=== PATIENT | male | born 1990 | race Caucasian/White ===

== ENCOUNTER 2017-11-07 23:30 | Inpatient (IN) | payer MEDICAID ==
[~2017-11-07] VITALS: Ht 170.2 cm; Wt 69.4 kg
[2017-11-08] VITALS (7 sets, daily range): BP systolic 96–120; BP diastolic 49–79
--- NOTE | 2017-11-08 00:41 | NUR ---
PT PRESENTS TO THE ED WITH A C/O RUQ ABD PAIN X 12 HRS. HE REPORTS THE PAIN HAS BEEN CONSTANT AND WORSENING SINCE NOON. HE DENIES ANY DIARRHEA OR FEVER. ABD IS SOFT AND TENDER TO PALPATION. DENIES ANY BLOODY STOOL OR VOMIT. RESP ARE EVEN AND UNLABORED, DENIES CP, SOB. RATES PAIN 7/10, SHARP. MEDICATED PER MD ORDERS
[2017-11-08 00:42] LABS: CALCIUM 9.1 mg/dL (8.5-10.1); CARBON DIOXIDE 32.9 mmol/L (21-32); CHLORIDE SERUM 101 mmol/L (98-107); GFR1 > 60 mL/min; GLUCOSE SERUM 112 mg/dL (74-106); SODIUM SERUM 138 mmol/L (136-145)
[2017-11-08 00:44] LABS: BASOPHIL % 0.5 % (0-2); PLATELET COUNT 307 x10^3mcL (130-400); RED CELL DISTRIBUTION WIDTH 13.3 % (11.5-14.5)
[2017-11-08 00:47] LABS: ALBUMIN 3.8 g/dL (3.4-5.0); ALKALINE PHOSPHATASE 130 U/L (46-116); ALT/SGPT 557 U/L (16-63); AST/SGOT 866 U/L (15-37); BILIRUBIN TOTAL 1.2 mg/dL (0.20-1.00); LIPASE 109 IU/L (73-393)
--- NOTE | 2017-11-08 01:21 | NUR ---
PATIENT MEDICATED WITH MORPHINE 4 MG FOR COMPLAINT OF 9/10 PAIN. UPPER ABDOMEN. U/S TECH AT THE BEDSIDE DOING ULTRASOUND.
--- NOTE | 2017-11-08 02:16 | NUR ---
REPORT WAS GIVEN TO QIAN. PATIENT TRANSPORTED TO ROOM 256B. PAIN FREE AT THIS TIME.
--- NOTE | 2017-11-08 03:16 | NUR ---
RECEIVED PT FROM ED. PT AOX4. TELE #22, NSR, HR 77. DENIES CP/PRESSURE. PULSES PALPABLE, NO EDEMA NOTED. LUNG SOUNDS CLEAR, ON RA. DENIES SOB/DIFFICULTY BREATHING. BOWEL SOUNDS ACTIVE. VOIDS FREELY. AMBULATORY, SKIN INTACT. IV IN LFA, INTACT AND PATENT. BED IN LOWEST POSITION. CALL LIGHT WITHIN REACH. WILL CONTINUE TO MONTIOR.
[2017-11-08 04:59] LABS: MAGNESIUM 1.8 mg/dL (1.8-2.4); PHOSPHOROUS 1.9 mg/dL (2.5-4.9)
[2017-11-08 05:00] LABS: CHOLESTEROL/HDL RATIO 2.4
[2017-11-08 05:07] LABS: T3 TOTAL 1.23 ng/mL
[2017-11-08 05:09] LABS: FREE T4 1.29 ng/dL (0.76-1.46); FREE THYROXINE INDEX 4.2 ug/dL (1.4-4.5); T4(THYROXINE) 11.8 ug/dL (4.7-13.3)
--- NOTE | 2017-11-08 05:40 | NUR ---
PT RESTING IN BED. RR EVEN AND UNLABORED. NO ACUTE DISTRESS NOTED. CALL LIGHT WITHIN REACH. BED IN LOWEST POSITION. WILL CONTINUE TO MONITOR.
--- NOTE | 2017-11-08 07:20 | NUR ---
PT WAS ENDORSE TO ME THIS MORNING. A/AO X4. MAURITIAN SPK. TELE 22 NRS. LUNGS CLEAR ON RA. BREATHING EVEN AND UNLABORED. NO RESP DISTRESS OR SOB NOTED. IV TO THE LFA INTACT AND PATENT. DENIES ANY PAIN AT THIS TIME. C/O N/V, WILL MEDICATED PER EMAR. CALL LIGHT INREACH. WILL CONTINUE PLAN OF CARE.
[2017-11-08 08:14] LABS: microscopic required? NO
--- NOTE | 2017-11-08 08:14 | NUR ---
PT C/O ABD PAIN 06/02, MEDICATED PER EMAR.
[2017-11-08 09:13] LABS: AMPHETAMINE QUAL UR NONE DETECTED (NEG <=1000)
[2017-11-08 09:19] LABS: urine erythrocyte NEGATIVE (NEGATIVE)
--- NOTE | 2017-11-08 15:27 | NUR ---
PT IS SITTING UP IN BED WITH BY HIS SIDE. PER RADHA GARCIA ORDERS PT IS ON REG DIET. GAVE PT A SNACK, SPRITE AND WATER TO DRINK. DENIES ANY ABD OR BACK PAIN AT THIS TIME. DENIES ANY N/V AT THIS TIME. WILL CONTINUE PLAN OF CARE.
--- NOTE | 2017-11-08 18:15 | NUR ---
C/O ABD. PAIN 07/03. MEDICATED WITH TORADOL IVP PER ORDER.
--- NOTE | 2017-11-08 18:46 | NUR ---
PT LAYING IN BED WATCHING TV. VS STABLE. TOLERATED 50% OF HIS DINNER. DENIES ANY ABD OR BACK PAIN AT THIS TIME, MEDICATED PER EMAR FOR PAIN. DENIES ANY MORE N/V. IV TO THE LFA INTACT AND PATENT. WILL ENDORSE PT TO INCOMING RN
--- NOTE | 2017-11-08 20:38 | NUR ---
PT CURRENTLY RESTING IN BED, NO ACUTE DISTRESS. A/O X4. TELE #22 SHOWING SINUS RHYTHM, DENIES CHEST PAIN. PULSES PALPABLE IN ALL EXTREMITIES. NO EDEMA NOTED. LUNG SOUNDS CTA BILATERALLY, DENIES SOB. BOWEL SOUNDS ACTIVE, LAST BM 11/07/17. VOIDING WELL. AMBULATORY. SKIN INTACT. DENIES PAIN AT THIS TIME. IV PATENT AND INTACT. BED IN LOWEST POSITION, SIDE RAILS UP X2, CALL LIGHT WITHIN REACH. WILL CONTINUE TO MONITOR.
--- NOTE | 2017-11-09 01:39 | NUR ---
PT CURRENTLY RESTING IN BED, NO ACUTE DISTRESS. WILL CONTINUE TO MONITOR.
[2017-11-09 05:31] VITALS: BP 107/70
--- NOTE | 2017-11-09 05:43 | NUR ---
PT SLEPT PERIODICALLY THROUGHOUT NIGHT, NO ACUTE DISTRESS. ALL NEEDS MET AND ATTENDED TO. NO SIGNIFICANT CHANGES. IV PATENT AND INTACT. BED IN LOWEST POSITION, SIDE RAILS UP X2, CALL LIGHT WITHIN REACH. MEDICATED PAIN PER EMAR. WILL ENDORSE CARE TO ONCOMING NURSE.
[2017-11-09 06:12] LABS: CALCIUM 8.1 mg/dL (8.5-10.1); CARBON DIOXIDE 27.4 mmol/L (21-32); CHLORIDE SERUM 108 mmol/L (98-107); GFR1 > 60 mL/min; GLUCOSE SERUM 83 mg/dL (74-106); MAGNESIUM 1.7 mg/dL (1.8-2.4); POTASSIUM SERUM 3.8 mmol/L (3.5-5.1); SODIUM SERUM 140 mmol/L (136-145)
[2017-11-09 06:29] LABS: BASOPHIL % 0.4 % (0-2); PLATELET COUNT 251 x10^3mcL (130-400); RED CELL DISTRIBUTION WIDTH 13.2 % (11.5-14.5)
--- NOTE | 2017-11-09 07:20 | NUR ---
PT WAS ENDORSE TO ME THIS MORNING. AA/O X4 KOREAN SPK. TELE 22 NSR. HR 83. VS STABLE. LUNGS CLEAR ON RA. NO RESP DISTRESS OR SOB NOTED. DENIES ANY ABD PAIN AT THIS TIME. IS MEDICATED PER EMAR..IV TO THE LFA INTACT AND PATENT. SURG PREP WIPES DONE. WILL CONTINUE PLAN OF CARE.
[2017-11-09 07:25] VITALS: Ht 170.2 cm; Wt 69.4 kg
[2017-11-09 07:54] VITALS: BP 118/72
--- NOTE | 2017-11-09 08:10 | NUR ---
PT WAS TAKEN TO OR FOR PROCEDURE. VS STABLE. BREATHING EVEN AND UNLABORED ON RA. DENIES ANY PAIN OR DISCOMFORT, MEDICATED PER EMAR.
[2017-11-09 10:37] VITALS: BP 132/71
--- NOTE | 2017-11-09 10:41 | NUR ---
PT BACK FROM PROCEDURE.VS STABLE. BREATHING EVEN AND UNLABORED ON RA. NO RESP DISTRESS OR SOB NOTED. PT HAS SACHIN DRAIN TO THE RIGHT OF ABD, DRAINING SANGUINEOUS NOTED 40ML. X4 BANDAIDS INTACT AND DRESSING INPLACE AND INTACT NO DRAINAGE NOTED. RECONNECTED PT TELE 22 NSR. IV TO THE LFA INFUSING AT 100 ML/HR. DENIES ANY ABD PAIN AT THIS TIME, MEDICATED PER EMAR. CALL LIGHT IN REACH. WILL CONTINUE PLAN OF CARE.
--- NOTE | 2017-11-09 11:50 | NUR ---
PT C/O ABD PAIN 06/02. MEDICATED PER EMAR.
[2017-11-09 14:50] VITALS: BP 106/56
--- NOTE | 2017-11-09 15:07 | NUR ---
PT C/O 08/03 ABD PAIN, MEDICATED PER EMAR.
--- NOTE | 2017-11-09 17:34 | NUR ---
PT WALKED HALLWAY X1. TOLERATED WELL. ENCOURAGED PT TO CONTINUE INCENTIVE SPIROMETER.
--- NOTE | 2017-11-09 17:59 | NUR ---
PT IS SITTING UP AT BEDSIDE. VS STABLE. TRANSFER TO [facility]. STATED HIS ABD PAIN IS A BIT BETTER AFTER HE WALKED THE DAVIES, MEDICATED PER EMAR FOR PAIN. SACHIN TOTAL OUT PUT 70ML SANGUINEOUS DRAINAGE. ALL 4 BANDAIDS ARE INTACT. IV TO THE LFA INTACT AND PATENT. WILL ENDORSE PT TO INCOMING RN.
--- NOTE | 2017-11-09 18:09 | NUR ---
PT TOLERATED ALL HIS CLEAR LIQ DINNER WELL, DENIES ANY N/V. PT WAS ABLE TO WALK THE DAVIES X3 MORE TIMES. TOLERATED WELL.
[2017-11-09 18:29] VITALS: BP 116/71
--- NOTE | 2017-11-09 19:24 | NUR ---
AAO X 4. SPEECH CLEAR AND APPROPRIATE. HAS BEEN AMBULATING IN HALLWAY PER PT. HAS NOT PASSED GAS OR STOOL BUT HAS BEEN BURPING. HYPOACTIVE BOWEL SOUNDS. BREATHING EVEN AND UNLABORED ON ROOM AIR, LUNG SOUNDS CLEAR. IVF OF NS AT 100ML/HR. STATED PAIN IS 6/10 GETTING BETTER THAN EARLIER.
--- NOTE | 2017-11-09 20:49 | NUR ---
ENCOURAGED TO USE INCENTIVE SPIROMETER. PT ABLE TO BRING SPIROMETER TO 1000ML LEVEL. INSTRUCTED TO USE 10 X EVERY HOUR WHILE AWAKE.
--- NOTE | 2017-11-09 23:58 | NUR ---
STATED NO HEADACHE, STATED PAIN TO ABD DOWN TO 1/10
[2017-11-10 05:57] VITALS: BP 95/50
--- NOTE | 2017-11-10 06:06 | NUR ---
stated having only minimal pain to abdomen, no headache. ambulated to restroom, stated he feels he needs to pass stool.
--- NOTE | 2017-11-10 06:11 | NUR ---
stated he passed mostly gas and a little stool. ambulating in hallway with steady gait.
--- NOTE | 2017-11-10 06:12 | NUR ---
noted new order for regular diet
--- NOTE | 2017-11-10 06:21 | NUR ---
DRAINED 25ML SEROSANGUINEOUS FLUID FROM SACHIN DRAIN
[2017-11-10 06:54] LABS: CALCIUM 8.4 mg/dL (8.5-10.1); CARBON DIOXIDE 27.4 mmol/L (21-32); CHLORIDE SERUM 106 mmol/L (98-107); CREATININE SERUM 0.9 mg/dL (0.7-1.3); GFR1 > 60 mL/min; GLUCOSE SERUM 91 mg/dL (74-106); MAGNESIUM 1.8 mg/dL (1.8-2.4); POTASSIUM SERUM 3.6 mmol/L (3.5-5.1); SODIUM SERUM 139 mmol/L (136-145)
[2017-11-10 07:04] LABS: BASOPHIL % 0.3 % (0-2); PLATELET COUNT 285 x10^3mcL (130-400); RED CELL DISTRIBUTION WIDTH 13.3 % (11.5-14.5)
--- NOTE | 2017-11-10 07:18 | NUR ---
awake and alert, watching tv. in no acute distress. endorsed to nurse davidson
--- NOTE | 2017-11-10 07:36 | NUR ---
RECEIVED PATIENT FROM NIGHT NURSE. PATIENT AWAKE, ALERT AND ORIENTED. REPORTS PAIN UNDER CONTROL. ABDOMEN SOFT. BOWEL SOUNDS ACTIVE. DRESSINGS TO SURGICAL INCISIONS ARE DRY AND INTACT. SACHIN DRAIN PATENT WITH MINIMAL SEROUS DRAINAGE. PATIENT ENCOURAGED TO USE INSENTIVE SPIROMETER AND TO AMBULATE.
[2017-11-10 08:33] LABS: BILIRUBIN DIRECT 0.14 mg/dL (0.0-0.2); BILIRUBIN TOTAL 0.38 mg/dL (0.20-1.00); TOTAL PROTEIN, SERUM 6.8 g/dL (6.4-8.2)
[2017-11-10 08:38] LABS: ALBUMIN 3.1 g/dL (3.4-5.0)
[2017-11-10 09:43] VITALS: BP 116/73
--- NOTE | 2017-11-10 09:44 | NUR ---
AT 0830 - SEEN BY DR TORRES DURING MORNING ROUNDS. MEDICAL TEAM DOCTORS, TIEN DORANTES AND MYSELF PRIMARY NURSE ALSO PRESENT. DR JONES SPOKE TO PATIENT IN GER[place]. PATIENT ENCOURAGED TO AMBULATE. PLAN TO DC HOME TODAY WITH SACHIN DRAIN WHICH CAN THEN BE REMOVED AT DR GERBER'S OFFICE. PATIENT. VERBALZIED AGREEMENT. AT 0930 - AMBULATING IN HALLWAY. USING INSENTIVE SPIROMETER EFFECTIVELY. C/O ABDOMINAL PAIN 07/03. MEDICATED WITH TORADOL PER EMAR.
[2017-11-10] MEDS ORDERED: COL100 PO (11:31)
[2017-11-10] MEDS ORDERED: GAS RELIEF 8080 MG PO (11:33)
[2017-11-10] MEDS ORDERED: APAP/HYDROCODON1 T13 PO (11:41)
--- NOTE | 2017-11-10 13:19 | NUR ---
PATIENT HAS BEEN AMBULATING IN HALLWAY. ALSO USING INSENTIVE SPIROMETER EFFECTIVELY. AWAITING DISCHARGE ORDERS.
[2017-11-10 13:32] VITALS: BP 116/73
[2017-11-10 13:47] VITALS: BP 118/77
--- NOTE | 2017-11-10 14:31 | NUR ---
AT 1400 - SACHIN DRAIN REMOVED INTACT AFTER REMOVAL OF HOLDING SUTURE, PER ORDERS. MINIMAL SEROSANGUINOUS DRAINAGE FROM SITE. SITE LOOKS CLEAN. UPPER ABDOMINAL INCIISONS WITH MELI LOOK CLEAN AND DRY. NOTED BRIGHT BLOOD FROM UMBILICAL INCISION WITH SURROUNDING ECCYMOSIS. PHOTO DOCUMENTED AND SHOWN TO DR ZENG. MAY POSSIBLY NEED ADDITIONAL STAPLE - PER DR ZIMMERMAN. AT 1430 - WOUND EXAMINED BY DR RODRIGUEZ. NO NEED FOR ADDITIONAL MELI.
--- NOTE | 2017-11-10 17:05 | NUR ---
AT 1545 - PATIENT'S WOUND REVIEWED BY DR GARCIA AFTER PATIENT AMBULATED. OKAY TO DC PATIENT. IV CATHETER REMOVED INTACT. PRINTED DISCHARGE INSTRUCTIONS GIVEN AND EXPLAINED TO PATIENT AND FAMILY MEMBER. PATIENT REQUESTED NOTE FOR WORK AND CALLED. AT 1615 - PATIENT DECIDED TO LEAVE BEFORE WORK NOTE WAS WRITTEN. HE WILL OBTAIN ONE DURING PCP APPOINTMENT IN 2 DAYS DISCHARGED HOME WITH FAMILY. ESCORTED TO DISCHARGE OFFICE BY NURSE.
== END 2017-11-10 16:15 | disposition home or self-care (01) | DRG 263 ==
LOC: ED 23:30 → DU 11-08 01:54
PROVIDERS: Emergency Medicine; Family Medicine; Surgery; ADMIT Family Medicine
PROC: 0FT44ZZ Resection of Gallbladder, Percutaneous Endoscopic Approach (ICD-10-PCS; principal; 2017-11-09 08:30)
DX: K80.00 Calculus of gallbladder with acute cholecystitis without obstruction (principal); E83.42 Hypomagnesemia; E83.39 Other disorders of phosphorus metabolism; Z68.24 Body mass index [BMI] 24.0-24.9, adult
CPT/HCPCS: 83880; 84439; 94150; J0690; J1170; J1885; J2001; J2270; J2405; J3010; J3490; J7030; Q0092